=== PATIENT | female | born 1990 | race Caucasian/White ===

== ENCOUNTER 2017-10-09 01:42 | Emergency (ER) | payer MEDICAID ==
[2017-10-09] MEDS: IBUPROFEN 600 MG TAB PO (03:14)
[2017-10-09] MEDS: HYDROCODONE/APAP (5/325) TAB PO (05:58)
== END 2017-10-09 06:42 | disposition home or self-care (01) ==
LOC: FTE 01:42
DX: S52.611A Displaced fracture of right ulna styloid process, initial encounter for closed fracture (principal); V89.2XXA Person injured in unspecified motor-vehicle accident, traffic, initial encounter
CPT/HCPCS: 29125; 73090-RT; 73110-RT; 81025; 99283-25